=== PATIENT | female | born 1960 | race Caucasian/White ===

== ENCOUNTER 2019-06-12 22:12 | Emergency (ER) | payer MEDICAID ==
[~2019-06-12] VITALS: Ht 170.2 cm; Wt 99.8 kg
[2019-06-12 22:16] VITALS: BP 136/95
--- NOTE | 2019-06-12 22:43 | NUR ---
CALLED FOR ROOM ASIGNMENT, NO ANSWER.
--- NOTE | 2019-06-12 23:00 | NUR ---
CALLED FOR ROOM ASIGNMENT, NO ANSWER.
--- NOTE | 2019-06-12 23:06 | NUR ---
CALLED FOR ROOM ASIGNMENT, NO ANSWER.
== END 2019-06-12 23:07 | disposition home or self-care (01) ==
LOC: ER 22:18
DX: Z53.21 Procedure and treatment not carried out due to patient leaving prior to being seen by health care provider (principal); L98.9 Disorder of the skin and subcutaneous tissue, unspecified; I10 Essential (primary) hypertension